=== PATIENT | male | born 1950 | race Caucasian/White ===

== ENCOUNTER → 2019-11-24 | Outpatient (CLI) | payer OTHER | LOC: LAB 09:48 | PROVIDERS: ATTEND Anesthesiology | DX: Z01.812 Encounter for preprocedural laboratory examination (principal); Z20.828 Contact with and (suspected) exposure to other viral communicable diseases ==

== ENCOUNTER → 2019-12-15 | Outpatient (CLI) | payer OTHER ==
[~2019-12-15] MED LIST: ASA81BEC PO; MULTI VITAMIN1 EACH PO; OYSCO 500+D TA1 EACH PO; PROTONIX40 M4 PO; SIMVASTATIN40 MG PO
== END ==
LOC: LAB 10:03
PROVIDERS: ATTEND Specialist
DX: Z01.812 Encounter for preprocedural laboratory examination (principal); Z20.828 Contact with and (suspected) exposure to other viral communicable diseases

== ENCOUNTER → 2019-12-18 | Outpatient (CLI) | payer OTHER ==
[~2019-12-18] VITALS: Ht 175.3 cm; Wt 77.1 kg
--- NOTE | 2019-12-21 13:56 | P ---
[facility] [place] [address] PROCEDURE REPORT Name: SEGUNDO PERDOMO Room #: REG [facility] Joyce#: [id number] Admission: 12/18/19 Attend Phys: Chito Weiss Discharge: Date of : 50 Report #: [id number] THIS REPORT FOR: cc: Joe Bojorquez MD, Neal A. MD McElhinney, Christian C. MD ~ CC: Chito Bojorquez DATE OF SERVICE: 12/18/2019 PROCEDURE PERFORMED: Upper endoscopy with biopsies and esophageal dilation. HISTORY OF PRESENT ILLNESS: The patient is a 69-year-old male with a history of chronic cough. He has had sinus surgery approximately 3 weeks ago, started on PPI therapy with possibility of cough being related to reflux. He does report some mild dysphagia with certain food products. No previous history of upper endoscopy, apparently had an upper GI recently that showed some abnormality; however, I do not have a copy of these results. He denies any nausea or vomiting. His weight has been stable. Plan is for upper endoscopy. DESCRIPTION OF PROCEDURE: The risks and benefits of the procedure were explained to the patient, those risks including but not limited to bleeding, perforation and the risk of sedation. He understood these risks and gave informed consent. Sedation was given using propofol per anesthesia. Next, using a standard Olympus upper endoscope, the scope was placed in the patient's mouth and advanced under direct vision through the esophagus, stomach and into the second portion of the duodenum. The larynx was normal in appearance. The upper and mid esophagus was normal in appearance. At the GE junction, a possible short segment of Khan's was noted. Biopsies were obtained. No evidence of esophagitis. In the stomach, there was a mild diffuse gastritis. Biopsies were obtained to rule out H. pylori. No evidence of ulcerations or erosions. The pylorus was normal and patent. The duodenal bulb, first and second portion were all normal. The scope was then brought back up into the patient's stomach and a Savary guidewire was inserted through the scope, leaving the guidewire in place as the scope was then withdrawn. Next, a 48-Liberian Savary dilation was then performed without difficulty. The wire and dilator were removed. The scope was reintroduced into the patient's stomach. There was a small mucosal tear in the proximal esophagus. No evidence of bleeding. No further dilations were performed. The scope was then withdrawn and the procedure terminated. The patient tolerated the procedure well. IMPRESSION: 1. 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 [address] [address] PROCEDURE REPORT Name: SEGUNDO PERDOMO Room #: REG Hector Cook#: [id number] Admission: 12/18/19 Attend Phys: Chito Weiss Discharge: Date of : 50 Report #: [id number] 2. Mild gastritis. 3. Otherwise, normal upper endoscopy. RECOMMENDATIONS: 1. Await biopsy results. 2. We would recommend continued daily PPI therapy. 3. Observe the patient post-dilation. Thank you for allowing me to participate in his care. <ELECTRONICALLY SIGNED> By: Chito West MD 12/21/19 1356 [id number] [id number] Chito West MD /nt
--- NOTE | 2019-12-23 09:37 | PATH ---
[facility] [place] [address] PATHOLOGY RPT PROCEDURE Name: ZORAIDA PERDOMOSofia HAN Room #: REG [facility] [id number] Admission: 12/18/19 Date of : 50 Discharge: Report #: [id number] Path Case #: [id number] [facility] Accession Number: [id number] . 01 Material submitted: . PART A: stomach - BIOPSY OF GASTRITIS R/O H. PYLORI PART B: esophagus - BIOPSY OF DISTAL ESOPHAGUS R/O WILLINGHAM'S. Modifiers: distal . 01 Clinical history: . REFLUX, CHRONIC COUGH, GASTRITIS . 02 Diagnosis: A. Stomach, "gastritis", endoscopic biopsy: - Gastric antral and oxyntic mucosa with features of reactive gastropathy (chemical gastritis). - Negative for intestinal metaplasia, dysplasia, and malignancy. - Negative for Helicobacter pylori. . B. Esophagus, "distal", endoscopic biopsy: - Esophageal squamous and gastric cardia mucosa with features of chronic gastritis. - Negative for intestinal metaplasia, dysplasia, and malignancy. . (MLK:mmabida; 12/21/2019) QL 12/22/2019 0841 Local . 02 Electronically signed: . Era Amaro MD, Pathologist NPI- [id number] . 01 Gross description: . A. Received in formalin labeled "Sachi Perdomo, BX of gastritis rule out H. pylori" are multiple montez-brown soft tissue fragments measuring in aggregate 0.8 x 0.4 x 0.1 cm. The specimen is submitted entirely in A1. . B. Received in formalin labeled "Hare, Sachi, BX of distal esophagus rule out Willingham's" are multiple montez-brown soft tissue fragments measuring in aggregate 0.5 x 0.3 x 0.1 cm. The specimen is submitted entirely in B1. ([facility]; 12/19/2019) [facility] 12/19/2019 1020 Local . 02 Microscopic: . Immunohistochemical stain results (properly-controlled): . Helicobacter pylori (block A1): Negative for organisms . [address] [address] PATHOLOGY RPT PROCEDURE Name: SACHI PERDOMO Room #: REG [facility] M..#: [id number] Admission: 12/18/19 Date of : 50 Discharge: Report #: [id number] Path Case #: [id number] (MLK:mml; 12/21/2019) . 02 Pathologist provided ICD-10: K21.00, R05, K29.70 . 02 CPT . 077873, 600018, I51464 Specimen Comment: A courtesy copy of this report has been sent to [phone] Specimen Comment: Report sent to Specimen Comment: A duplicate report has been generated due to demographic updates. Performed at: [address], [place], [place] [id number] MD Juan José Yo MD Phone: [phone] Performed at: [address] [id number] MD Violet Hylton MD Phone: [phone]
== END | disposition home or self-care (01) ==
LOC: GI 07:34
PROVIDERS: ATTEND Specialist
DX: R13.10 Dysphagia, unspecified (principal); K31.9 Disease of stomach and duodenum, unspecified; K21.00 Gastro-esophageal reflux disease with esophagitis, without bleeding; K29.70 Gastritis, unspecified, without bleeding; R05 Cough; E78.5 Hyperlipidemia, unspecified; Z98.890 Other specified postprocedural states; Z79.899 Other long term (current) drug therapy; Z85.828 Personal history of other malignant neoplasm of skin; Z87.891 Personal history of nicotine dependence; Z79.82 Long term (current) use of aspirin
CPT/HCPCS: 62110; 62900

== ENCOUNTER → 2019-12-22 | Outpatient (CLI) | payer OTHER | LOC: CAT 09:33 | PROVIDERS: ATTEND Internal Medicine | DX: Z13.6 Encounter for screening for cardiovascular disorders (principal); I25.10 Atherosclerotic heart disease of native coronary artery without angina pectoris; E78.00 Pure hypercholesterolemia, unspecified ==

== ENCOUNTER → 2019-12-28 | Outpatient (CLI) | payer OTHER ==
[~2019-12-28] VITALS: Ht 175.3 cm; Wt 77.2 kg
[~2019-12-28] MED LIST changes: +PROAIR HFA8.5 GM INH; +ROSUVASTATIN CA10 MG PO
[2019-12-28 10:07] VITALS: BP 139/89
[2019-12-28 10:58] LABS: HEMATOCRIT 40.2 % (42.0-52.0); HEMOGLOBIN 13.5 gm/dL (14.0-18.0); MCH 30.7 pg (26.0-34.0); MCHC 33.7 g/dL (28.0-37.0); MCV 91.1 fL (80.0-100.0); RBC 4.41 mil/uL (4.50-6.00); WBC 5.4 thou/uL (4.0-11.0)
[2019-12-28 11:07] LABS: CALCIUM 9.5 mg/dL (8.5-10.1); CREATININE 1.2 mg/dL (0.7-1.3); POTASSIUM 3.4 mmol/L (3.5-5.1)
--- NOTE | 2020-01-03 19:10 | CATHLAB ---
[facility] [place] [address] INVASIVE PROCEDURE REPORT Name: SEGUNDO PERDOMO Room #: REG LAUREN MarielyVidal.#: [id number] Admission: 12/28/19 Attend Phys: Quan Romero Discharge: Date of : 50 Report #: [id number] THIS REPORT FOR: cc: Joe Bojorquez MD, Neal A. MD Lammoglia, Francisco J. MD ~ APPROVED REPORT Study performed: 12/28/2019 10:42:56 Patient Details Patient Status: Out-Patient Room #: The patient is a 69 year-old male Event Personnel Quan Romero Raw Stock Machine Loader, Anamika Card RTVidal, MECHANICAL ENGINEERING ADVISOR Monitor, Sehrin Brothers RN RN, Rika Clinton RN RN, Rosa Davis Procedures Performed Art Access - R femoral artery* Left Heart Cath w/or w/o Coronaries [id number] [facility] Hemostasis w/ Mynx 27461 Initial Mod Sed Same Phys/QHP Gr5y 003534 15109 Mod Sed Same Phys/QHP Ea 658443,supervision of conscious sedation, attempted IFR ( unable to advance wire ) Indication Dyspnea, Positive stress test Procedure Narrative The Right Groin^ was infiltrated with 1% Lidocaine subcutaneous anesthesia. A BRITE TIP 6FR X 23CM Sheath #[id number] sheath was inserted into the RFA^. Coronary angiography was performed using coronary diagnostic catheters. The right coronary system was accessed and visualized with a JR4 catheter. The left coronary system was accessed and visualized with a JL4 catheter. The left ventricle was accessed and visualized with a ANGLED PIGTAIL catheter. Left ventricular/Aortic Valve gradient assessed via catheter pullback. Closure device was deployed with a 6 Fr MYNXGRIP 6/7F #[id number]. The patient tolerated the procedure well and there were no complications associated with the procedure. There was no hematoma. Intraoperative Conscious Sedation Sedation start time: 11:31 Case end Time: [facility] [address] [place] [address] INVASIVE PROCEDURE REPORT Name: SEGUNDO PERDOMO Room #: REG [facility]#: [id number] Admission: 12/28/19 Attend Phys: Quan Ferrer Discharge: Date of : 50 Report #: [id number] 12:12 Versed 4 mg Fluoro Time: 8.60 minutes Dose: DAP 7378.00 cGycm2 1047 mGy Contrast Type and Amount: Omnipaque 100 ml Coronary Angiography The patient's coronary anatomy is right dominant. Diagnostic Cath Left Main large caliber vessel of normal origin with mild irregularities. heavy calcification noted on flourouscopy. Bifurcates LAD and LCx areteries LAD small to moderate caliber type II vessel. heavy calcifications noted throughout course on fourouscopy. the proximal and mid LAD have moderate difffuse irregularities of 50% or less. the distal mid LAD then continues rapidly tapering into a string like vessel. Diagonal 1 small caliber vessel with mild irregularities throughout its course Circumflex moderate caliber nondominant vessel coursing in av groove giving rise to a bifurcating marginal. there is heavy epicardial calcifications noted on flouroscopy. no high grade lesions noted although there is a moderate ostial lesion. Right Coronary large caliber vessel of normal origin without aortoostial disease. there is a significant shepards crook deformity proximally with the development of a long segment of moderarte to severe eccentric diffuse disease. it the continues posteriorly without severe disease giving rise to pda vessel which is without severe disease cad R PDA moderate to large caliber vessel without high grade lesions Left Ventriculography Left Ventriculography was not performed. Hemodynamics The aortic pressure is 142/77 mmHg with a mean of 108 mmHg. The left ventricular pressure is 138/5 mmHg with a mean of mmHg. The left ventricular end diastolic pressure is 13 mmHg. [facility] [address] [place] [address] INVASIVE PROCEDURE REPORT Name: SEGUNDO PERDOMO Room #: REG Joyce#: [id number] Admission: 12/28/19 Attend Phys: Quan Ferrer Discharge: Date of : 50 Report #: [id number] PCI Technique Attempted advance of a standard IFR wire which was unsuccessful due to loss of tip control beyond shepards crook deformity Conclusion 1. Coronary Artery Disease consisting of moderate to severe proximal RCA and moderate LAD 2. Heavy calcification throughout entire epicardial arteries 3. Severe tortuosity of proximal RCA Recommendations Cardiac Risk Reduction Program Aggressive Medical Therapy will discuss revascularization options consisting of high risk pci vs single vessel ACBG and compaaared to optimized aggressive medical management <ELECTRONICALLY SIGNED> By: Quan Romero MD 01/03/201908 08 08 Quan Romero MD /INF
== END | disposition home or self-care (01) ==
LOC: CATH 08:58
PROVIDERS: ATTEND Internal Medicine
DX: R07.9 Chest pain, unspecified (principal); R94.39 Abnormal result of other cardiovascular function study; I25.10 Atherosclerotic heart disease of native coronary artery without angina pectoris; E78.5 Hyperlipidemia, unspecified; K21.9 Gastro-esophageal reflux disease without esophagitis; Z98.890 Other specified postprocedural states; Z79.899 Other long term (current) drug therapy; Z85.828 Personal history of other malignant neoplasm of skin; Z87.891 Personal history of nicotine dependence; Z79.82 Long term (current) use of aspirin; Z82.49 Family history of ischemic heart disease and other diseases of the circulatory system

== ENCOUNTER → 2020-06-02 | Outpatient (CLI) | payer OTHER | LOC: RAD 09:48 | PROVIDERS: ATTEND Pediatrics | DX: R06.00 Dyspnea, unspecified (principal) ==

== ENCOUNTER → 2020-06-10 | Outpatient (CLI) | payer OTHER | LOC: CAT 13:41 | PROVIDERS: ATTEND Pediatrics | DX: Z12.2 Encounter for screening for malignant neoplasm of respiratory organs (principal); I25.10 Atherosclerotic heart disease of native coronary artery without angina pectoris; I70.0 Atherosclerosis of aorta; Z87.891 Personal history of nicotine dependence ==